=== PATIENT | female | born 1955 | race Caucasian/White ===

== ENCOUNTER 2019-12-24 15:05 | Outpatient (REF) | payer OTHER, SELFPAY ==
[2019-12-24 21:47] LABS: HCT 40.9 % (36.0-46.0); HGB 13.7 g/dL (12.0-15.5); Mean Corp. HGB Concentration 33.5 g/dL (32.0-36.0); Mean Corpuscular Hemoglobin 30.2 pg (27.0-33.0); Mean Corpuscular Volume 90.3 fL (80-95); Platelet Count 216 x1000/uL (130-400); RBC 4.53 m/cumm (4.00-5.20); RBC Distribution Width 13.3 % (11.7-14.6); White Blood Cell Count 5.19 k/cumm (4.4-10.8)
[2019-12-24 22:12] LABS: Hemoglobin A1C 5.7 % (3.8-5.6)
[2019-12-24 22:52] LABS: Calculated LDL 120 mg/dL (<100); Cholesterol 205 mg/dL (<200); HDL Cholesterol 62 mg/dL (40-60); Triglyceride 119 mg/dL (<150)
== END 2019-12-24 15:25 ==
LOC: NCHCN 15:05
PROVIDERS: PCP Family Medicine; Visit Provider Family Medicine
DX: K90.0 Celiac disease (principal); Z13.1 Encounter for screening for diabetes mellitus; Z13.220 Encounter for screening for lipoid disorders; Z82.62 Family history of osteoporosis
CPT/HCPCS: 80061; 82306; 85027; 83036

== ENCOUNTER 2020-08-29 14:49 | Outpatient (REF) | payer OTHER, SELFPAY ==
[2020-08-29 22:09] LABS: TSH (W/Ref FT4) 2.06 uIU/mL (0.36-3.74)
== END 2020-08-29 14:50 | disposition home or self-care (01) ==
LOC: NCHCN 14:49
PROVIDERS: PCP Family Medicine; Visit Provider Nurse Practitioner Family
DX: I49.8 Other specified cardiac arrhythmias (principal)
CPT/HCPCS: 84443

== ENCOUNTER 2022-04-09 13:21 | Outpatient (REF) | payer MEDICARE, SELFPAY ==
[2022-04-09 16:55] LABS: Calculated LDL 128 mg/dL (<100); Cholesterol 208 mg/dL (<200); HDL Cholesterol 71 mg/dL (40-60); Triglyceride 48 mg/dL (<150)
[2022-04-09 16:57] LABS: Hemoglobin A1C 5.4 % (<5.7)
[2022-04-11 05:39] LABS: Vitamin D 25 Total 49.6 ng/mL (30-100)
== END 2022-04-09 13:22 | disposition home or self-care (01) ==
LOC: NCHCN 13:21
PROVIDERS: PCP Family Medicine; Visit Provider Family Medicine
DX: R73.09 Other abnormal glucose (principal); E78.89 Other lipoprotein metabolism disorders; E55.9 Vitamin D deficiency, unspecified
CPT/HCPCS: 80061; 82306; 83036

== ENCOUNTER 2023-01-10 15:39 | Outpatient (REF) | payer MEDICARE, SELFPAY ==
[2023-01-10 21:04] LABS: Abs Immature Grans 0.01 10^3/uL (0.0-0.06); Absolute Basophil Count 0.05 10^3/uL (0.0-0.2); Absolute Eosinophil Count 0.08 10^3/uL (0.0-0.7); Absolute Lymphocyte Count 1.79 10^3/uL (1.2-3.4); Absolute Monocyte Count 0.62 10^3/uL (0.1-0.8); Absolute Neutrophil Count 4.81 10^3/uL (1.2-6.7); Basophils % 0.7; Eosinophils % 1.1; HCT 41.4 % (36.0-46.0); Immature Grans % 0.1; Lymphocytes % 24.3; MCH 30.4 pg (27.0-33.0); MCHC 33.8 % (32.0-36.0); MCV 90 fL (80-95); MPV 10.8 fL (8.0-11.0); Monocytes % 8.4; Neutrophils % 65.4; Platelet Count 199 10^3/uL (130-400); RBC 4.61 10^6/uL (3.93-5.22); RDW 12.9 % (11.7-14.6); RDW-SD 42.7 fL; WBC 7.36 10^3/uL (4.4-10.8)
[2023-01-10 21:26] LABS: ALT 25 U/L (14-59); AST 18 U/L (15-37); Albumin 3.7 g/dL (3.4-5.0); Alkaline Phosphatase 91 U/L (46-116); Anion Gap 6.4 mmol/L (3-11); BUN 20 mg/dL (7-18); Bilirubin, Total 0.3 mg/dL (0.2-1.0); CO2 29.6 mmol/L (21.0-32.0); CREATININE 0.9 mg/dL (0.55-1.02); Calcium 9.6 mg/dL (8.5-10.1); Chloride 104 mmol/L (98-107); Estimated GFR 69.64 (mL/min/1.73m2); Glucose 107 mg/dL (74-106); Potassium 4.4 mmol/L (3.5-5.1); Sodium 140 mmol/L (136-145); TSH 2.36 uIU/mL (0.36-3.74)
== END 2023-01-10 15:40 | disposition home or self-care (01) ==
LOC: NCHCN 15:39
PROVIDERS: PCP Family Medicine; Visit Provider Internal Medicine
DX: R53.83 Other fatigue (principal); R42 Dizziness and giddiness
CPT/HCPCS: 80053; 84443; 85025

== ENCOUNTER 2023-05-21 09:26 | Outpatient (REF) | payer MEDICARE, SELFPAY ==
[2023-05-22 10:15] LABS: Lyme Ab w Rflx to Lyme Confirm Negative (Negative)
[2023-05-23 21:09] LABS: Anaplasma phagocytophilum Negative (Negative); B. miyamotoi PCR Negative (Negative); Babesia divergens/MO-1 Negative (Negative); Babesia duncani Negative (Negative); Babesia microti Negative (Negative); Ehrlichia chaffeensis Negative (Negative); Ehrlichia ewingii/canis Negative (Negative); Ehrlichia muris eauclairensis Negative (Negative)
== END 2023-05-21 09:27 | disposition home or self-care (01) ==
LOC: NCHCN 09:26
PROVIDERS: PCP Family Medicine; Visit Provider Family Medicine
DX: R42 Dizziness and giddiness (principal)
CPT/HCPCS: 82533; 87798; 86618

== ENCOUNTER 2023-05-30 21:21 | Outpatient (REF) | payer MEDICARE, SELFPAY ==
[2023-05-30 21:35] LABS: Vitamin B12 928 pg/mL (193-986)
--- OUTSIDE RECORDS SUMMARY | 2023-05-30 21:41 | XMS_ITS | CCD ---
Author Name Unknown Address [address] [place] [address] [phone] Organization Unknown Address [address] [place] [address] [phone] Care Team Providers Care Dance Studio Manager Name Role Phone HILLARY CAMACHO Attending Physician [phone] Vital Signs Unknown or Not Available. Allergies Allergy Code Allergy Type Reaction Status GLUTEN {Clinical monitoring unavailable} 0 Drug a llergy CELIAC Active Procedures Unknown or Not Available. History of Immunizations Unknown or Not Available. Problems Unknown or Not Available. Results Unknown or Not Available. Active Medications Unknown or Not Available. Medications Administered During Visit Unknown or Not Available. Encounters Encounter Diagnosis Diagnosis Code Start Date Trochanteric bursitis, left hip M7062 02/23/2021 Social History Smoking Status Code Start Date End Date Never smoker [id number] Patient Decision Aids Unknown or Not Available. Discharge Instructions You were admitted to [facility] on 02/23/2021 11:18 with a principal diagnosis of Trochanteric bursitis, left hip You were discharged from [facility] on 02/23/2021 11:18 Should you have any questions prior to discharge, please contact a member of your healthcare team. If you have left the hospital and have any questions, please contact your primary care physician. Chief Complaint and Reason For Visit Unknown or Not Available. Function Status Unknown or Not Available. Plan of Care Unknown or Not Available. Referral/Transition of Care Unknown or Not Available.
--- OUTSIDE RECORDS SUMMARY | 2023-05-30 21:41 | XMS_ITS | CCD ---
Author Name Unknown Address [address] [place] [address] [phone] Organization Unknown Address [address] [place] [address] [phone] Care Team Providers Care Turbine Engineer Name Role Phone HILLARY CAMACHO Attending Physician [phone] Vital Signs Unknown or Not Available. [...] Start Date Trochanteric bursitis, left hip M7062 03/20/2021 Social History Smoking Status Code Start Date End Date Never smoker [id number] Patient Decision Aids Unknown or Not Available. Discharge Instructions You were admitted to [facility] 01 on 03/20/2021 08:44 with a principal diagnosis of Trochanteric bursitis, left hip You were discharged from [facility] on 04/03/2021 16:00 Should you have any questions prior to [...]
== END 2023-05-30 21:22 | disposition home or self-care (01) ==
LOC: NCHCN 21:21
PROVIDERS: PCP Family Medicine; Visit Provider Internal Medicine
DX: R26.89 Other abnormalities of gait and mobility (principal)
CPT/HCPCS: 82607

== ENCOUNTER 2023-09-25 20:13 | Outpatient (REF) | payer MEDICARE, SELFPAY ==
[2023-09-25 22:08] LABS: Hemoglobin A1C 5.7 % (<5.7)
== END 2023-09-25 20:14 | disposition home or self-care (01) ==
LOC: NCHCN 20:13
PROVIDERS: PCP Family Medicine; Visit Provider Family Medicine
DX: R73.03 Prediabetes (principal)
CPT/HCPCS: 83036

== ENCOUNTER 2024-03-19 15:59 | Outpatient (REF) | payer MEDICARE, SELFPAY ==
[2024-03-19 15:32] LABS: HCT 44.6 % (36.0-46.0); HGB 14.5 g/dL (11.2-15.7); MCH 30.3 pg (27.0-33.0); MCHC 32.5 % (32.0-36.0); MCV 93 fL (80-95); MPV 10.8 fL (8.0-11.0); Platelet Count 201 10^3/uL (130-400); RBC 4.78 10^6/uL (3.93-5.22); RDW 13.2 % (11.7-14.6)
[2024-03-19 15:53] LABS: Hemoglobin A1C 5.5 % (<5.7)
[2024-03-19 15:58] LABS: ALT 27 U/L (14-59); AST 20 U/L (15-37); Albumin 3.7 g/dL (3.4-5.0); Alkaline Phosphatase 92 U/L (46-116); Anion Gap 5.6 mmol/L (3-11); BUN 16 mg/dL (7-18); Bilirubin, Total 0.41 mg/dL (0.2-1.0); CO2 30.4 mmol/L (21.0-32.0); CREATININE 0.8 mg/dL (0.55-1.02); Calcium 9.4 mg/dL (8.5-10.1); Chloride 105 mmol/L (98-107); Estimated GFR 79.71 (mL/min/1.73m2); Glucose 89 mg/dL (74-106); Potassium 4.2 mmol/L (3.5-5.1); Sodium 141 mmol/L (136-145); TSH (W/Ref FT4) 1.62 uIU/mL (0.36-3.74); Total Protein 7.3 g/dL (6.4-8.2)
== END 2024-03-19 16:00 | disposition home or self-care (01) ==
LOC: NCHCN 15:59
PROVIDERS: PCP Family Medicine; Visit Provider Internal Medicine
DX: R73.03 Prediabetes (principal); R42 Dizziness and giddiness
CPT/HCPCS: 80053; 85027; 83036; 84443